=== PATIENT | male | born 1985 | race Two or more races ===

== ENCOUNTER 2023-05-09 08:27 | Outpatient (CLI) | payer OTHER | END 2023-05-09 08:29 | disposition home or self-care (01) | LOC: LAB 08:27 | DX: R55 Syncope and collapse (principal) ==

== ENCOUNTER → 2023-05-09 | Outpatient (CLI) | payer OTHER | END | disposition home or self-care (01) | LOC: RAD 08:44 | DX: R55 Syncope and collapse (principal); M54.2 Cervicalgia; M54.50 Low back pain, unspecified; M54.6 Pain in thoracic spine | CPT/HCPCS: 70498 ==

== ENCOUNTER 2023-08-01 18:10 | Emergency (ER) | payer OTHER ==
[~2023-08-01] VITALS: Ht 167.6 cm; Wt 71.2 kg
[2023-08-01 19:35] LABS: HEMOGLOBIN 15.3 g/dL (13-16.00); MEAN CELL VOLUME 87.9 fL (80.0-100.00); MEAN CORPUSCULAR HEMOGLOBIN 29.2 pg (27.00-32.0); MEAN CORPUSCULAR HGB CONC 33.2 g/dl (32.0-36.0); PLATELET COUNT 254 K/uL (150-450); RED BLOOD COUNT 5.24 M/uL (4.00-6.00); RED CELL DISTRIBUTION WIDTH 13.2 % (11.5-14.5)
[2023-08-01 19:54] LABS: CALCIUM 9.5 mg/dL (8.5-10.1); CREATININE SERUM 0.98 mg/dL (0.70-1.30); GFR 86.54; POTASSIUM 4.23 mEq/L (3.5-5.1)
== END 2023-08-01 23:39 | disposition home or self-care (01) ==
LOC: ER 18:10
PROVIDERS: General Practice
DX: T14.8XXA Other injury of unspecified body region, initial encounter (principal); V49.9XXA Car occupant (driver) (passenger) injured in unspecified traffic accident, initial encounter; Y93.9 Activity, unspecified; Y92.9 Unspecified place or not applicable; Y99.9 Unspecified external cause status